=== PATIENT | female | born 1990 | race African-American/Black ===

== ENCOUNTER 2017-02-18 20:50 | Emergency (ER) | payer BC ==
[~2017-02-18 20:50] MED LIST: ALBUTEROL17 GM INH; ERYTHROMYCIN B500 MG PO; TESSALON200 MG PO
== END 2017-02-18 21:52 | disposition home or self-care (01) ==
LOC: CFTX 20:50 → CED 20:50 → CFTX 21:28
DX: N61.1 Abscess of the breast and nipple (principal); Z98.890 Other specified postprocedural states
CPT/HCPCS: 99283